=== PATIENT | female | born 1990 | race Hispanic/Latino ===

== ENCOUNTER 2017-01-29 21:17 | Inpatient (IN) | payer OTHER ==
[~2017-01-29] VITALS: Ht 157.5 cm; Wt 93.5 kg
[~2017-01-29 21:17] MED LIST: GEMF600T3 PO
[2017-01-29 21:27] VITALS: BP 129/79; PULSE 102; RESP 16; O2SAT 97
[2017-01-29 23:37] LABS: BASOPHILS % (AUTO) 0.1 % (0-3); EOSINOPHILS % (AUTO) 1.3 % (0-5); Mean Corpuscular Hemoglobin 31.2 pg (27.0-35.0); Mean Corpuscular Volume 85.6 fL (81-100); NEUTROPHILS % (AUTO) 70.7 % (40-74); Platelet Count 187 bil/L (150-400)
[2017-01-30 00:18] LABS: APPEARANCE,URINE SLIGHTLY CLOUDY (CLEAR,HAZY); COLOR,URINE YELLOW (YELLOW); OCCULT BLOOD,URINE LARGE (NEGATIVE); UROBILINOGEN,URINE NORMAL (NORMAL)
--- NOTE | 2017-01-30 00:53 | ED.REPORT ---
HPI-Abd Pain F Under 39 Date of Service January 30, 2017 ED Provider: Malcolm Vasquez MD 26 y/o female with a hx of pancreatitis presents to the ED complaining of abdominal pain, onset 2 days ago. Pt reports the pain is more severe on the left side and radiates to her right side. Associated sx include chills, bloating , nausea and difficulty drinking water. She denies fever and dysuria. Pt took an ibuprofen this morning. The pt reports her sx are similar to when she had pancreatitis 2 years ago which was related to dyslipidemia Nursing Notes Stated Complaint: ABDOMINAL PAIN Chief Complaint: Female Abdominal Pain Nursing Notes Reviewed: Yes Allergies: Coded Allergies: morphine (Verified Allergy, Intermediate, Nausea,Vomiting,Diarrhea, 06/04/15 ) Scheduled Gemfibrozil (Gemfibrozil) 600 Mg Tablet 600 MG PO BIDAC General Time Seen by MD: 00:52 Chief Complaint Abdominal pain Hx Obtained From: Patient Arrived By: Walk-in Sudden in Onset?: No Onset Occurred: 2 days ago Symptom Duration: Since onset Progression since Onset: Constant Location: : LUQ Quality: Painful Radiation: : RUQ Severity: Current: Moderate Severity: Maximum: Moderate Recent Healthcare: No recent doctor visit Similar Sx Previous: Yes Past Medical History Past Medical History Bladder infections Denies other medical problems Pancreatitis (2015) Past Surgical History Reports: Cholecystectomy Smoking History Never Smoker Social History Alcohol Use: "Social" Drug Use: Denies drug use Ambulatory Status Independent Review of Systems Reports: Bloating Constitutional: Reports: Chills, Denies: Fever GI: Reports: Abdominal pain, Dysphagia, Nausea Female: Denies: Dysuria Complete sys rev & neg: except as marked. Physical Exam Initial Vital Signs Vital Signs (First) Date Time Temp Pulse Resp B/P Pulse Ox O2 Delivery O2 Flow Rate FiO2 01/29/17 21:27 36.8 102 16 129/79 97 Room Air Initial VS: Reviewed Head / Eyes: Atraumatic, Normocephalic, PERRL ENT: Mucous membranes moist, Conjunctiva normal, No scleral icterus Neck: Supple, Non-tender, Full range of motion Extremities: Vascular intact, Neuro intact, No swelling, No tenderness Skin: Warm, Dry, No cyanosis Neurologic: Alert, Oriented, Nonfocal Psychiatric: Mood/affect normal, Behavior normal, Normal thought content General/Constitutional: Awake, Alert, Cooperative Distress / Hydration: Positive: Distress moderate Respiratory / Chest: Atraumatic, Breath sounds NL, Breath sounds = bilat, No respiratory distress, No rales, No rhonchi, No wheezing Abdomen: Atraumatic, No guarding, No rebound Epigastric and upper quadrant tenderness. Interpretation & Diagnostics Interpretation & Diagnostics: u preg neg Lab Results Interpretation Result Diagram: 01/29/17 2334 01/29/17 2334 Test 01/29/17 23:34 01/29/17 23:35 01/30/17 00:07 White Blood Count 9.2th/mm3 (3.8-10.1) Red Blood Count 4.43mil/mm3 (3.90-5.20) Hemoglobin 13.8g/dL (12.0-15.6) Hematocrit 37.9% (35.0-46.0) Mean Corpuscular Volume 85.6fL (81-100) Mean Corpuscular Hemoglobin 31.2pg (27.0-35.0) Mean Corpuscular Hemoglobin Concent 36.4% (32.0-37.0) Red Cell Distribution Width 12.7% (12.3-15.4) Platelet Count 187bil/L (150-400) Neutrophils (%) (Auto) 70.7% (40-74) Lymphocytes (%) (Auto) 20.8% (14-46) Monocytes (%) (Auto) 7.0% (4-12) Eosinophils (%) (Auto) 1.3% (0-5) Basophils (%) (Auto) 0.1% (0-3) Sodium Level 132mEq/L (134-144) Potassium Level 3.9mEq/L (3.5-5.2) Chloride Level 94mEq/L (97-108) Carbon Dioxide Level 20mmol/L (18-29) Blood Urea Nitrogen 13mg/dL (6-20) Creatinine 0.66mg/dL (0.57-1.00) Estimat Glomerular Filtration Rate 154mL/min (>59) Glucose Level 104mg/dL (60-99) Calcium Level 9.3mg/dL (8.5-10.1) Magnesium Level 1.8mg/dL (1.6-2.6) Total Bilirubin 0.4mg/dL (0.0-1.2) Aspartate Amino Transf (AST/SGOT) 12U/L (0-50) Alanine Aminotransferase (ALT/SGPT) 13U/L (0-32) Alkaline Phosphatase 46U/L (25-150) Total Protein 6.8g/dL (6.4-8.4) Albumin 3.8g/dL (3.4-5.0) Lipase 123U/L (13-60) Hold Aguilera Top Tube Received (Received) Urine Color Yellow (YELLOW) Urine Appearance Slightly cloudy Urine pH 6.0 (5.0-8.0) Urine Specific [place] 1.020 (1.003-1.035) Urine Protein Negativemg/dL (NEG,TRACE) Urine Glucose (UA) Negativemg/dL (NEGATIVE) Urine Ketones Negativemg/dL (NEGATIVE) Urine Occult Blood Large (NEGATIVE) Urine Nitrite Negative (NEGATIVE) Urine Bilirubin Negative (NEGATIVE) Urine Urobilinogen Normalmg/dL (NORMAL) Urine Leukocyte Esterase Moderate (NEGATIVE) Urine RBC 0-2/hpf (0-2) Urine WBC 6-10/hpf (0-5) Urine Epithelial Cells Moderate/hpf (NONE-MOD) Urine Crystals Amorphous urates (NONE Urine Bacteria Moderate/hpf (NONE-FEW) Urine Hyaline Casts None/lpf (NONE) Urine Granular Casts None seen (NONE SEEN) Urine Waxy Casts None seen (NONE SEEN) Urine Red Blood Cell Casts None seen (NONE SEEN) Urine White Blood Cell Casts None seen (NONE SEEN) Urine Mucus Present (None Seen) Urine Trichomonas None seen (NONE SEEN) Urine Yeast None (NONE SEEN) Urinalysis Comment None Urine Culture Reflexed Indicated CT Abd / Pelvis Interpretation Impression: Pancreatitis. Status post cholecystectomy Hepatomegaly Mild splenomegaly Signed Foreign Walton M.D. 01/30/17; 02:10 Study type: Abdominal CT IV contrast Interpretation / Wet Read by: Interpret - Radiologist Re-Eval/Medical Decision Med Decision/Clinical Course Med Decision/Clinical Course: Acute pancreatiits with vomiting and pain that is difficult to control. given IV fluids, dilaudid zofran and compazine. No complications at present. will admit. Source of Hx: Old records Re-Evaluation/Progress : Time of Eval: 02:17 Re-Evaluation/Progress Note: Rechecked pt. Pt is still nauseated and has abdominal pain. Informed pt of need for admission. Pt understands and agrees with the plan for admission. All questions addressed. Consultation : Referral / Consult Name: Delfino Saldivar MD Consulted With: Hospitalist Call Returned at: 02:21 Insurance Rater: Will see patient, Agrees with eval, Agrees with plan, Accepts admit Counseled Regarding: Diagnosis, Lab results, Need for admission Discharge & Departure Primary Impression: Pancreatitis Chronicity: acute Pancreatitis type: other Acute pancreatitis complication : no infection or necrosis Qualified Code: K85.80 - Other acute pancreatitis without necrosis or infection Disposition: ADMITTED TO HOSPITAL Discharge Condition All VS Reviewed: Yes Referrals: Atif Bhagat ND (PCP) Scribe Attestation Portions of this note were transcribed by Marlo Santana. I, , personally performed the history, physical exam and medical decision-making;I reviewed and confirmed the accuracy of the information in the transcribed note. Signed by Nikos Martin. 01/30/17 3217 copies to: Atif Bhagat ND, Donald L MD January 30, 2017 00:53 Marlo Santana January 30, 2017 01:02
[2017-01-30] MEDS ORDERED: 0.9% Sodium Chloride 1,000 ML IV ONE (01:00)
[2017-01-30 01:03] LABS: Magnesium 1.8 mg/dL (1.6-2.6)
[2017-01-30] MEDS: Ondansetron 2 mg/mL 2 mL Inj IVPUSH PRN ×4 (01:21→06:43)
[2017-01-30] MEDS: HYDROmorphone 1 mg/mL Inj IVPUSH PRN ×2 (01:21→02:25)
[2017-01-30 02:07] VITALS: BP 132/77; PULSE 99; RESP 17; O2SAT 98
[2017-01-30] MEDS ORDERED: ProchlorPERazine 5 mg/mL 2 mL Inj IVPUSH ONE (02:50)
[2017-01-30] MEDS ORDERED: Alum-Mag Hydrox-Simeth 30 mL Suspension PO PRN (02:55)
[2017-01-30] MEDS ORDERED: Ondansetron 2 mg/mL 2 mL Inj IVPUSH PRN (02:55)
[2017-01-30] MEDS ORDERED: Polyethylene Glycol (PEG) 17 Gm Powder PO PRN (02:55)
[2017-01-30] MEDS ORDERED: HYDROmorphone 1 mg/mL Inj IVPUSH PRN (02:55)
--- NOTE | 2017-01-30 03:11 | PCM.HPMED ---
Subjective Date of Service January 30, 2017 Primary Provider: Admitting Physician: Delfino Saldivar MD Primary Care Physician: Atif Bhagat ND Attending Physician: Delfino Saldivar MD Chief Complaint: abd pain History of Present Illness: 26-year-old female with history of pancreatitis secondary to hypertriglyceridemia presents to the ED complaining of abdominal pain with nausea vomiting 2 days. Patient reports the pain is very severe mostly on the left side radiates downwards. She reports that it was mild 2 days ago but today she started having increasing pain with chills, bloating, nausea, and anorexia. She has not noticed any fevers, diarrhea, or dysuria but reports that she did have URI like symptoms 3-4 weeks ago. Denies any new medications or alcohol. She is status post cholecystectomy 2 years ago. She does smoke marijuana every other day, but has not helped her nausea vomiting this time. She will she did start her menstrual cycle 2 days ago and she attributed her pain to menstrual cramps initially. In the ER she was afebrile and normotensive but mildly tachycardic at 102. Her CBC was completely benign, and her CMP was remarkable for sodium 132, lipase mildly elevated at 123. She had a CT of her abdomen and pelvis which showed hepatosplenomegaly along with acute pancreatitis. Patient was admitted due to continued anorexia. Review of Systems: 12 point review of systems negative except as stated in history of present illness Allergies Coded Allergies: morphine (Verified Allergy, Intermediate, Nausea,Vomiting,Diarrhea, 06/04/15 ) Home Medications Gemfibrozil Ibuprofen NuvaRing PMH Pancreatitis secondary to hypertriglyceridemia Surgical History Cholecystectomy Family History Reports family history of high cholesterol Social History Hx Alcohol Use: No Hx Substance Use: Yes (Pot once in a while ) Hx Tobacco Use: No Smoking Status: Never Smoker Living Arrangement: with Family Exam Vital Signs Vital Sign - Last Date Time Temp Pulse Resp B/P Pulse Ox O2 Delivery O2 Flow Rate FiO2 01/30/17 02:07 36.7 99 17 132/77 98 Room Air Intake and Output 01/29/17 01/29/17 01/30/17 Cumulative From/Thru 15:00 23:00 07:00 01/29/17 21:27 - 01/30/17 01:22 Intake Total 1000 ml 1000 ml Balance 1000 ml 1000 ml Intake IV Total 1000 ml 1000 ml Exam General: Obese female who appears in moderate pain, alert and oriented 3 HEENT: NC, AT, PERRLA, EOMI, sclerae anicteric, oropharynx moist and pink Neck: Soft, nontender, trachea midline CV: Regular rate and rhythm with no murmurs rubs or clicks noted Respiratory: CTA B, wheezing or rhonchi, normal respiratory effort Abdomen: Obese, soft, tender to palpation in the epigastric and left upper quadrant, mild guarding, no rebound, normoactive bowel sounds noted, no rashes noted MSK: Muscle strength grossly intact and equal, no swollen or tender joints, no clubbing or edema Neuro: Grossly intact, no focal weakness, light sensation grossly intact Skin: Warm, dry, intact Psych: Appropriate mood and affect, linear thought process Lab and Diagnostics Result Diagram: 01/29/17 2334 01/29/17 233 X-Rays, CTs and MRIs CT abdomen pelvis [facility] read: Hepatosplenomegaly and acute pancreatitis Assessment & Plan 26-year-old female with history of pancreatitis secondary to hypertriglyceridemia presents to the ED complaining of abdominal pain with nausea vomiting 2 days. Acute Pancreatitis, Present on Admission Patient's lipase is only mildly elevated but fat stranding of pancreatic tail was noted on CT scan. Patient's abdominal pain is moderate but her nausea and vomiting is very persistent. She reports her diet has been pretty poor recently. She also had URI a few weeks ago. s/p Cholecystectomy ruling out gall stones as a cause We will keep patient NPO We will hydrate her with LR 200mls/hr Pain management with IV Dilaudid Symptom management with IV Zofran Hyperlipidemia, POA Patient is currently only on gemfibrozil. She also reports another natural medication that she does not remember the name of. Lipid panel in the AM. Mild Hepatosplenomegaly, POA As noted on preliminary read from [facility]. Will await official interpretation. Patient denies any history of hepatitis. LFTs are within normal limits. May be associated with recent URI. Continue to monitor and workup as appropriate Asymptomatic bacteriuria or Cystitis, POA Patient's abnormal UA likely due to being on her menstrual cycle. - will initiate antibiotics if symptoms are noted Tylenol prn fever/pain Bowel Regimen prn constipation CODE STATUS: Full resuscitation Disposition: Patient is admitted under inpatient status with expected LOS >2 midnights due to risk of adverse effects, medical complexity, and decompensation Pain Evaluation: Pain not Controlled VTE Prophylaxis: Sub-Q Enoxaparin, SCDs Resuscitation Status: CPR: Attempt Resuscitation Attending Statement The patient was seen and examined together with Dr. Duke on 01/30 and I agree with the history, exam and plan as outlined in the note above. Alfredo Duke DO January 30, 2017 03:11 Delfino Saldivar MD January 30, 2017 04:12
[2017-01-30] MEDS: Lactated Ringer's 1,000 ML IV SCH ×5 (03:35→21:20)
[2017-01-30 03:40] VITALS: BP 126/85; PULSE 88; RESP 18; O2SAT 96
[2017-01-30 07:50] LABS: BASOPHILS % (AUTO) 0.1 % (0-3); EOSINOPHILS % (AUTO) 0.1 % (0-5); MONOCYTES % (AUTO) 4.9 % (4-12); Mean Corpuscular Hemoglobin 30.2 pg (27.0-35.0); NEUTROPHILS % (AUTO) 85.6 % (40-74); Platelet Count 158 bil/L (150-400)
[2017-01-30] MEDS ORDERED: MetoCLOpramide 5 mg/mL 2 mL Inj IVPUSH PRN (09:15)
[2017-01-30] MEDS ORDERED: Promethazine Inj 50 MG in 0.9% Sodium Chloride-Pha MIX 100 ML IV ONE (09:15)
--- NOTE | 2017-01-30 09:38 | DRSVH ---
PROCEDURE: CT ABDOMEN AND PELVIS WITH CONTRAST ([id number]) INDICATIONS: epigastric and LUQ pain, elevated lipase TECHNIQUE: After the administration of intravenous contrast, 5 mm thick sections acquired from the diaphragm to the symphysis. 5 mm coronal and sagittal reformats were acquired. For radiation dose reduction, the following was used: automated exposure control, adjustment of mA and/or kV according to patient ian lópez. COMPARISON: [facility], CT, CT ABD PELVIS W CON, 06/04/2015, 7:26. FINDINGS: Image quality: Excellent. ABDOMEN: Lung bases: Lung bases are clear. Heart size is normal. Solid organs: Liver and spleen are normal in enhancement. Liver is mildly enlarged. Probable focal f atty infiltration noted in the liver adjacent to the falciform ligament. Gallbladder surgically abse nt. Biliary system is non dilated. Pancreas enhances normally. There is mild, diffuse enlargement o f the pancreatic tail. Mild inflammatory changes and small amount of free fluid noted adjacent to the tail of the pancreas. Findings compatible with acute pancreatitis. No adrenal nodules. Kidneys demo nstrate normal size and enhancement, without hydronephrosis. Peritoneum and bowel: Bowel loops demonstrate normal wall thickness and caliber. No free fluid or a ir. The appendix is normal. Nodes and vessels: No retroperitoneal or mesenteric adenopathy by size criteria. Aorta and inferior vena cava are normal in size. Miscellaneous: No ventral hernias. PELVIS: Genitourinary: Bladder wall thickness is normal. Miscellaneous: No inguinal hernias or adenopathy. Bones: No suspicious bony lesions. No vertebral body compression fractures. IMPRESSION: 1. Acute pancreatitis. No evidence of pancreatic necrosis or pancreatic ductal dilatation.. 2. Status post cholecystectomy. 3. Hepatomegaly. Final interpretation is concordant with preliminary interpretation. Dictated by: Radha Shafer MD, PhD on 01/30/2017 at 9:31 Approved by: Radha Shafer MD, PhD on 01/30/2017 at 9:37
[2017-01-30] MEDS ORDERED: FENO134C PO (12:20)
[2017-01-30 17:10] VITALS: BP 107/65; PULSE 90; RESP 18; O2SAT 95
[2017-01-30 19:32] VITALS: BP 108/70; PULSE 93; RESP 18; O2SAT 96
[2017-01-30] MEDS ORDERED: fentaNYL-PF 50 mCg/mL 2 mL Inj IVPUSH PRN (20:15)
[2017-01-31 00:07] VITALS: BP 105/68; PULSE 96; RESP 16; O2SAT 97
[2017-01-31] MEDS: Lactated Ringer's 1,000 ML IV SCH ×4 (01:52→22:07)
[2017-01-31 05:06] VITALS: BP 100/66; PULSE 85; RESP 18; O2SAT 97
[2017-01-31 07:43] LABS: Mean Corpuscular Hemoglobin 29.7 pg (27.0-35.0); Mean Corpuscular Volume 88.8 fL (81-100)
[2017-01-31 08:10] VITALS: BP 107/67; PULSE 91; RESP 18; O2SAT 100
[2017-01-31 13:19] VITALS: BP 121/73; PULSE 94; RESP 18; O2SAT 96
--- NOTE | 2017-01-31 14:12 | PCM.PNMED ---
Subjective Date of Service January 31, 2017 Subjective Patient was seen and examined at bedside today. Patient denies any chest pain, shortness of breath, diarrhea. Patient states that her nausea and vomiting have improved significantly and her abdominal pain has decreased. Overnight events: None Exam Vital Signs Vital Sign - Last Date Time Temp Pulse Resp B/P Pulse Ox O2 Delivery O2 Flow Rate FiO2 01/31/17 13:19 36.3 94 18 121/73 96 Room Air Intake and Output 01/30/17 01/30/17 01/31/17 Cumulative From/Thru 15:00 23:00 07:00 01/29/17 21:27 - 01/31/17 06:08 Intake Total 1985 ml 2408 ml 5682 ml Output Total 2 ml Balance 1985 ml 2408 ml 5680 ml Intake Oral 0 ml 0 ml IV Total 1985 ml 2408 ml 5682 ml Output Emesis 2 ml # Voids 3 4 # Bowel Movements 0 0 Exam Physical Exam: GEN: Patient was awake, alert, responding appropriately to questions HEENT: Pupils equal round and reactive to light, extraocular eye muscles intact , Neck soft supple, trachea midline, nomocephalic/atraumatic CV: +S1/S2, regular rate and rhythm, no murmurs auscultated Respiratory: CTAB, no wheezes, rales, rhonchi GI: +bowel sounds x4, soft, compressible, mild tender to palpation EXT: no clubbing, cyanosis, edema Neuro: Cranial nerves II-XII grossly intact Psych: mood and affect were appropriate IVs and Medications Medications Reviewed: Medications were reviewed in detail Lab and Diagnostics Result Diagram: 01/31/17 0735 01/31/17 0735 X-Rays, CTs and MRIs CT abdomen pelvis [facility] read: Hepatosplenomegaly and acute pancreatitis Assessment & Plan 26-year-old female with history of pancreatitis secondary to hypertriglyceridemia presents to the ED complaining of abdominal pain with nausea vomiting 2 days. Acute Pancreatitis secondary to hypertriglyceridemia, Present on Admission -CT scan on admission showed fat stranding in the pancreatic tail -Triglycerides were elevated at 2317 trending down currently 606 -Advance patient from nothing by mouth to clear liquid diet if the patient is able to tolerate this at lunch will advance her to full liquid -Continue to hydrate with lactated Ringer's decrease from 200 mL an hour to 75 mL an hour as patient is now eating -Discontinue IV Dilaudid -Continue pain management with fentanyl when necessary (patient has an allergy to morphine) -Continue symptomatica management with IV Phenergan when necessary Hyperlipidemia, POA -Restart patient's home dose of gemfibrozil -Cholesterol elevated at 429 trending down currently 235 Mild Hepatosplenomegaly, POA -LFTs are within normal limits could be secondary to current disease process secondary to hypertriglyceridemia -Patient may need hepatitis workup as an outpatient -Continue to monitor Asymptomatic bacteriuria or Cystitis, POA -Patient's abnormal UA likely due to being on her menstrual cycle. - We will not treat the patient at this time as she is asymptomatic, if the patient becomes symptomatic we will treat with antibiotics Tylenol prn fever/pain Bowel Regimen prn constipation CODE STATUS: Full resuscitation Disposition: The patient is currently progressing well in her pancreatitis symptoms are decreasing. If patient is tolerating a full meal tomorrow and does not have any repeat symptoms of pancreatitis she can be discharged home. VTE Prophylaxis: Sub-Q Enoxaparin, SCDs Resuscitation Status: CPR: Attempt Resuscitation Fifi Stone DO January 31, 2017 14:12
[2017-01-31 19:37] VITALS: BP 113/73; PULSE 85; RESP 18; O2SAT 97
[2017-02-01 06:05] LABS: Mean Corpuscular Hemoglobin 29.4 pg (27.0-35.0); Mean Corpuscular Volume 88.2 fL (81-100)
[2017-02-01 06:14] VITALS: BP 114/75; PULSE 82; RESP 16; O2SAT 99
--- NOTE | 2017-02-01 12:56 | PCM.DIMED ---
Discharge Instructions Date of Service February 01, 2017 Dates of Hospitalization January 30, 2017 at 03:01 Discharge Diagnosis Discharge Diagnosis acute pancreatitis high cholesterol (hyperlipidemia) Diet Low fat, Low Sodium Activity No restrictions Call your provider Fever or Chills, Shortness of breath, Bleeding, Chest pain, Vomitting, Excessive diarrhea, Weakness (unilateral) Patient Instructions call physician if you experience abdominal pain, nausea, vomiting, fever, chills. Follow-up plan follow up with primary care doctor within 1 weeks of discharge. Follow-up with PCP in: 1 week Sukhjinder Dumont MD February 01, 2017 12:56
[2017-02-01] MEDS ORDERED: GEMF600T3 PO (12:59)
[2017-02-01] MEDS ORDERED: LIP40 PO (12:59)
--- NOTE | 2017-02-01 13:03 | PCM.DC.MED ---
Discharge Summary Date of Service February 01, 2017 Dates of Hospitalization Date of Hospital Admission January 30, 2017 at 03:01 Date of Discharge: February 01, 2017 Providers: Admitting Physician: Delfino Saldivar MD Primary Care Physician: Atif Bhagat ND Attending Physician: Delfino Saldivar MD Diagnosis at Time of Discharge Diagnosis at Time of Discharge acute pancreatitis high cholesterol (hyperlipidemia) Consultations none Procedures XRay, CTs & MRIs CT abdomen pelvis [place] read: Hepatosplenomegaly and acute pancreatitis Brief History 26-year-old female with history of pancreatitis secondary to hypertriglyceridemia presents to the ED complaining of abdominal pain with nausea vomiting 2 days. Patient reports the pain is very severe mostly on the left side radiates downwards. She reports that it was mild 2 days ago but today she started having increasing pain with chills, bloating, nausea, and anorexia. She has not noticed any fevers, diarrhea, or dysuria but reports that she did have URI like symptoms 3-4 weeks ago. Denies any new medications or alcohol. She is status post cholecystectomy 2 years ago. She does smoke marijuana every other day, but has not helped her nausea vomiting this time. She will she did start her menstrual cycle 2 days ago and she attributed her pain to menstrual cramps initially. In the ER she was afebrile and normotensive but mildly tachycardic at 102. Her CBC was completely benign, and her CMP was remarkable for sodium 132, lipase mildly elevated at 123. She had a CT of her abdomen and pelvis which showed hepatosplenomegaly along with acute pancreatitis. Patient was admitted due to continued anorexia. improved over the course of her hospital stay with supportive therapy. at time of d/c pain free, benign exam, tolerated diet. medication for cholesterol as indicated in her discharge medication list. advised to follow up with pcp for ongoing w/u, managment of her dysplipidemia Hospital Course 26-year-old female with history of pancreatitis secondary to hypertriglyceridemia presents to the ED complaining of abdominal pain with nausea vomiting 2 days. Acute Pancreatitis secondary to hypertriglyceridemia, Present on Admission -CT scan on admission showed fat stranding in the pancreatic tail -Triglycerides were elevated at 2317 trending down currently 606 -Advance patient from nothing by mouth to clear liquid diet if the patient is able to tolerate this at lunch will advance her to full liquid -Continue to hydrate with lactated Ringer's decrease from 200 mL an hour to 75 mL an hour as patient is now eating -Discontinue IV Dilaudid -Continue pain management with fentanyl when necessary (patient has an allergy to morphine) -Continue symptomatica management with IV Phenergan when necessary Hyperlipidemia, POA -Restart patient's home dose of gemfibrozil -Cholesterol elevated at 429 trending down currently 235 Mild Hepatosplenomegaly, POA -LFTs are within normal limits could be secondary to current disease process secondary to hypertriglyceridemia -Patient may need hepatitis workup as an outpatient -Continue to monitor Asymptomatic bacteriuria or Cystitis, POA -Patient's abnormal UA likely due to being on her menstrual cycle. - We will not treat the patient at this time as she is asymptomatic, if the patient becomes symptomatic we will treat with antibiotics Tylenol prn fever/pain Bowel Regimen prn constipation CODE STATUS: Full resuscitation Disposition: The patient is currently progressing well in her pancreatitis symptoms are decreasing. If patient is tolerating a full meal tomorrow and does not have any repeat symptoms of pancreatitis she can be discharged home. Exam Vital Signs (Last) Date Time Temp Pulse Resp B/P Pulse Ox O2 Delivery O2 Flow Rate FiO2 02/01/17 06:14 36.4 82 16 114/75 99 Room Air Exam seen and examined on day of discharge. Test 01/29/17 23:34 01/29/17 23:35 01/30/17 00:07 01/30/17 07:15 Magnesium Level 1.8mg/dL (1.6-2.6) Hold Aguilera Top Tube Received (Received) Urine Color Yellow (YELLOW) Urine Appearance Slightly cloudy Urine pH 6.0 (5.0-8.0) Urine Specific [place] 1.020 (1.003-1.035) Urine Protein Negativemg/dL (NEG,TRACE) Urine Glucose (UA) Negativemg/dL (NEGATIVE) Urine Ketones Negativemg/dL (NEGATIVE) Urine Occult Blood Large (NEGATIVE) Urine Nitrite Negative (NEGATIVE) Urine Bilirubin Negative (NEGATIVE) Urine Urobilinogen Normalmg/dL (NORMAL) Urine Leukocyte Esterase Moderate (NEGATIVE) Urine RBC 0-2/hpf (0-2) Urine WBC 6-10/hpf (0-5) Urine Epithelial Cells Moderate/hpf (NONE-MOD) Urine Crystals Amorphous urates (NONE Urine Bacteria Moderate/hpf (NONE-FEW) Urine Hyaline Casts None/lpf (NONE) Urine Granular Casts None seen (NONE SEEN) Urine Waxy Casts None seen (NONE SEEN) Urine Red Blood Cell Casts None seen (NONE SEEN) Urine White Blood Cell Casts None seen (NONE SEEN) Urine Mucus Present (None Seen) Urine Trichomonas None seen (NONE SEEN) Urine Yeast None (NONE SEEN) Urinalysis Comment None Urine Culture Reflexed Indicated Neutrophils (%) (Auto) 85.6% (40-74) Lymphocytes (%) (Auto) 9.2% (14-46) Monocytes (%) (Auto) 4.9% (4-12) Eosinophils (%) (Auto) 0.1% (0-5) Basophils (%) (Auto) 0.1% (0-3) Test 02/01/17 05:38 White Blood Count 6.0th/mm3 (3.8-10.1) Red Blood Count 3.57mil/mm3 (3.90-5.20) Hemoglobin 10.5g/dL (12.0-15.6) Hematocrit 31.5% (35.0-46.0) Mean Corpuscular Volume 88.2fL (81-100) Mean Corpuscular Hemoglobin 29.4pg (27.0-35.0) Mean Corpuscular Hemoglobin Concent 33.3% (32.0-37.0) Red Cell Distribution Width 13.0% (12.3-15.4) Platelet Count 170bil/L (150-400) Sodium Level 138mEq/L (134-144) Potassium Level 4.1mEq/L (3.5-5.2) Chloride Level 102mEq/L (97-108) Carbon Dioxide Level 22mmol/L (18-29) Blood Urea Nitrogen 7mg/dL (6-20) Creatinine 0.55mg/dL (0.57-1.00) Estimat Glomerular Filtration Rate 190mL/min (>59) Glucose Level 96mg/dL (60-99) Calcium Level 9.3mg/dL (8.5-10.1) Total Bilirubin 0.5mg/dL (0.0-1.2) Aspartate Amino Transf (AST/SGOT) 11U/L (0-50) Alanine Aminotransferase (ALT/SGPT) 12U/L (0-32) Alkaline Phosphatase 40U/L (25-150) Total Protein 5.9g/dL (6.4-8.4) Albumin 3.5g/dL (3.4-5.0) Triglycerides Level 477mg/dL (0-149) Cholesterol Level 246mg/dL (100-199) LDL Cholesterol, Calculated 112.600mg/dL (0-99) VLDL Cholesterol 95.400mg/dL HDL Cholesterol 38mg/dL (>39) Cholesterol/HDL Ratio 6.47 (0.0-4.4) Lipase 49U/L (13-60) Discharge Medications Discharge Medications Atorvastatin (Lipitor) 40 Mg Tablet 40 MG PO DAILY Prescribed by: Belem GLEASON Fenofibrate,Micronized (Fenofibrate) 134 Mg Capsule 134 MG PO DAILY (Reported) Gemfibrozil (Gemfibrozil) 600 Mg Tablet 600 MG PO BIDAC Prescribed by: Belem GLEASON Followup Plan Disposition: discharged home Follow-up plan follow up with primary care doctor within 1 weeks of discharge. Discharge Diet: Low fat, Low Sodium Discharge Activity: No restrictions Patient Instructions call physician if you experience abdominal pain, nausea, vomiting, fever, chills. Follow-up with PCP in: 1 week Time spent >35 minutes. Sukhjinder Dumont MD February 01, 2017 13:03
== END 2017-02-01 13:55 | disposition home or self-care (01) | DRG 440 ==
LOC: SED 21:17 → OSC 01-30 03:01
PROVIDERS: ADMIT Hospitalist; ATTEND Hospitalist
DX: K85.90 Acute pancreatitis without necrosis or infection, unspecified (principal); R16.2 Hepatomegaly with splenomegaly, not elsewhere classified; E78.5 Hyperlipidemia, unspecified